=== PATIENT | female | born 1960 | race Caucasian/White ===

== ENCOUNTER → 2017-12-23 | Outpatient (CLI) | payer OTHER ==
[~2017-12-23] MED LIST: CYCL10TA2 PO; GABA-586 PO; MELO15TA23 PO; OXYC-327 PO; RIVA10TA PO
[2017-12-23 14:42] LABS: PROTHROMBIN TIME PATIENT 12.3 SEC (11.7-14.0)
== END | disposition home or self-care (01) ==
LOC: SURGPAT 13:18
PROVIDERS: ATTEND Orthopaedic Surgery
DX: Z01.818 Encounter for other preprocedural examination (principal); M17.11 Unilateral primary osteoarthritis, right knee
CPT/HCPCS: 36415; 82040; 85610; 85651; 85730; 87641

== ENCOUNTER → 2018-08-03 | Outpatient (CLI) | payer OTHER ==
[2018-01-02 13:22] VITALS: BP 137/99
[~2018-08-03] MED LIST changes: +ASPI325T8 PO; +CHOL2000 PO; -GABA-586 PO; +GABA300C18 PO; +MULT1TAB52 PO; -OXYC-327 PO; +OXYC1TAB19 PO; +TURM500C4 PO
--- NOTE | 2018-08-03 15:04 | KCIC ---
EXAMINATION: Magnetic resonance imaging (MRI) of the lumbar spine without contrast 08/03/2018 1:15 PM HISTORY: Left lumbar radiculopathy TECHNIQUE: Multiplanar multi-weighted MRI of the lumbar spine was performed without intravenous contrast using the standard lumbar spine protocol. Contrast information: None administered. COMPARISON: None available. FINDINGS: There is minimal retrolisthesis of L3 on L4. There is grade 1 anterolisthesis of L4 on L5 and L5 on S1. Vertebral body heights are maintained. Marrow signal intensity is normal in all sequences with exception of Modic type I endplate degenerative changes at L2-L3 and L3-L4. There is moderate disc height loss at L1-L2, L2-L3 and L3-L4. There is endplate remodeling at L3-L4. There is mild disc height loss at L4-L5 and mild disc height loss at L5-S1. Vacuum disc phenomena is identified at L3-L4, L4-L5 and L5-S1. Disc desiccation is noted at all levels of the lumbar spine. Annular fissure is noted at L4-L5 and L5-S1. Conus medullaris terminates at L1. Distal spinal cord signal intensity is normal in all sequences. Abdominal aorta is normal in caliber. No suspicious retroperitoneal abnormality is identified. There is retroaortic left renal vein. Visualized portions of the sacrum appear intact. L1-L2: There is a disc bulge asymmetric to the left. There is mild facet arthropathy. There is no significant neuroforaminal stenosis. Mild spinal canal stenosis. L2-L3: There is mild disc bulge asymmetric to the left. There is mild facet arthropathy ligamentum flavum infolding. There is mild bilateral neuroforaminal stenosis, left greater than right. Mild spinal canal stenosis. L3-L4: There is a moderate disc bulge. There is moderate facet arthropathy ligamentum flavum infolding. There is mild/moderate bilateral neuroforaminal stenosis. Moderate spinal canal stenosis. There is right lateral recess stenosis secondary to ligamentum flavum infolding. L4-L5: There is a disc bulge with central disc extrusion. There is moderate facet arthropathy ligamentum flavum infolding. Mild bilateral neuroforaminal stenosis. Mild spinal canal stenosis. There is right lateral recess stenosis secondary to facet arthropathy and ligamentum flavum infolding. L5-S1: There is a mild disc bulge. There is moderate facet arthropathy. There is no significant neuroforaminal or spinal canal stenosis. IMPRESSION: Moderate to advanced degenerative disc disease of the lumbar spine, as described in detail above. Electronically signed by: Lawanda Garay MD (08/03/2018 3:01 PM) [facility]
== END | disposition home or self-care (01) ==
LOC: KCIC MRI 12:57
PROVIDERS: ATTEND Orthopaedic Surgery
DX: M51.16 Intervertebral disc disorders with radiculopathy, lumbar region (principal); M12.88 Other specific arthropathies, not elsewhere classified, other specified site; M48.061 Spinal stenosis, lumbar region without neurogenic claudication; Z96.651 Presence of right artificial knee joint
CPT/HCPCS: 72148

== ENCOUNTER → 2018-09-02 | Outpatient (CLI) | payer OTHER ==
[2018-01-02 13:22] VITALS: BP 137/99
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
== END | disposition home or self-care (01) ==
LOC: PNCL 07:29
PROVIDERS: ATTEND Anesthesiology
DX: M54.5 Low back pain (principal); M79.605 Pain in left leg; M25.562 Pain in left knee; E11.9 Type 2 diabetes mellitus without complications; M19.90 Unspecified osteoarthritis, unspecified site; Z90.710 Acquired absence of both cervix and uterus; Z79.899 Other long term (current) drug therapy; Z88.2 Allergy status to sulfonamides; Z91.013 Allergy to seafood; Z96.653 Presence of artificial knee joint, bilateral; W19.XXXA Unspecified fall, initial encounter; Y93.89 Activity, other specified; Y92.89 Other specified places as the place of occurrence of the external cause; Y99.8 Other external cause status
CPT/HCPCS: G0463

== ENCOUNTER → 2018-09-16 | Outpatient (CLI) | payer OTHER ==
[2018-01-02 13:22] VITALS: BP 137/99
[~2018-09-16] MED LIST changes: +IOHEXOL 180 MG/ML 10 ML VIAL. ONE; +methylPREDNISolone ACETATE 40 MG/ML VIAL. ONE; +methylPREDNISolone ACETATE 80 MG/ML VIAL. ONE
--- NOTE | 2018-09-16 11:42 | PAIN ---
DATE OF SERVICE: 09/16/2018 DIAGNOSES: Lumbar radiculopathy with lumbar degenerative disk disease, lumbar spinal stenosis. HISTORY OF PRESENT ILLNESS: The patient is a 58-year-old female, who returns for followup status post initial evaluation and preauthorization for lumbar epidural steroid injection obtained as they would like to proceed, still pain in the low back, left lower extremity as it was previously, posterior gluteus, lateral thigh, lateral anterior thigh, medial thigh, posterior calf, aching and dull, shooting and sharp. The patient reports it is a 4 on a scale of 10 over the past week, at worst 3 on average a 2 at its least and is a 3 today. The patient reports it is better. She has been off work, has not been taking care of her grandchild over the past few weeks as well, which seem to decrease the pain also. The patient reports being off her feet, resting seems to decrease it. Also, the patient reports she is sleeping better at night, awakens her from sleep on and off, but not every night. The patient reports no new motor or sensory deficits, no new bowel or bladder incontinence or other complaints. PHYSICAL EXAMINATION: VITAL SIGNS: The patient's blood pressure 158/106, pulse 77, respirations 16, temperature is 97.5 degrees Fahrenheit, height is 5 feet 5 inches, weight is 224 pounds. GENERAL: The patient is awake, alert, oriented, appropriate, very pleasant demeanor. HEENT: Head shows normocephalic, atraumatic. Extraocular movements are intact and symmetrical. Oral cavity: Mucous membranes are moist and pink. Dentition is intact. NECK: Shows anterior throat supple without palpable lymphadenopathy noted. Swallow reflex symmetrical. CHEST: Shows normal with inspection. Breath sounds are clear to auscultation bilaterally. HEART: Shows S1, S2 clear. ABDOMEN: Soft, nontender, nondistended. BACK: Shows spine grossly in the midline. Normal appearing thoracic kyphosis and some minor flattening of lumbar lordotic curvature. Lumbar paraspinous muscle shows symmetrical on inspection, on palpation shows some moderate tenderness, but only diffusely bilaterally. The patient has good rotational motion of lumbar spine, both laterally as well as extension and flexion without significant difficulty. EXTREMITIES: Lower extremities show deep tendon reflexes 2+ in the patellar, 1+ tendo-calcaneus tendons. Motor exam is strong with 5/5 dorsiflexion, extension, quadriceps and hamstring flexion symmetrical. Peripheral pulses are 1+ posterior tibial. No peripheral edema is noted bilaterally. Options were discussed with the patient. The patient's old chart was reviewed as his current medication regimen updated. Current review of systems updated today as well and we will proceed with a lumbar epidural steroid injection today with fluoroscopic guidance. Risks were again discussed including, but not limited to bleeding, infection, possibility of epidural hematoma, subsequent neurological compromise, dural puncture, headaches, spinal cord and/or nerve damage, side effects of steroid medication and poor results regarding pain control. The patient understands and wished to proceed. The patient will return to clinic in approximately 2 weeks for followup, was counseled as to return appointment, activity level and side effects to be aware of. DIAGNOSES: Lumbar radiculopathy with lumbar degenerative disk disease, lumbar spinal stenosis. PROCEDURE: Lumbar epidural steroid injection, translaminar approach L4-L5 level using C-arm fluoroscopic guidance under sterile prep and drape using local anesthetic. MEDICATION INJECTED: A total of 120 mg Depo-Medrol plus 10 mL of preservative-free normal saline and 2 mL of Isovue for contrast. CONDITION AT DISCHARGE: Stable shock well, had no complications. ANTONIETTA ALEGRIA MD DR: PHILLIP/nts JOB#: [id number] / [id number]
== END ==
LOC: PNCL 07:54
PROVIDERS: ATTEND Anesthesiology
DX: M51.16 Intervertebral disc disorders with radiculopathy, lumbar region (principal); M48.061 Spinal stenosis, lumbar region without neurogenic claudication; Z79.82 Long term (current) use of aspirin
CPT/HCPCS: 62323; J1030; J1040; Q9965

== ENCOUNTER → 2018-09-30 | Outpatient (CLI) | payer OTHER ==
[2018-01-02 13:22] VITALS: BP 137/99
[~2018-09-30] MED LIST changes: -IOHEXOL 180 MG/ML 10 ML VIAL. ONE; -methylPREDNISolone ACETATE 40 MG/ML VIAL. ONE; -methylPREDNISolone ACETATE 80 MG/ML VIAL. ONE
--- NOTE | 2018-09-30 10:32 | PAIN ---
DATE OF SERVICE: 09/30/2018 PROGRESS NOTE FOR PAIN CLINIC DIAGNOSES: Lumbar radiculopathy with lumbar degenerative disk disease, lumbar spinal stenosis. HISTORY OF PRESENT ILLNESS: The patient is a 58-year-old female, who returns for followup status post lumbar epidural steroid injection x 1. The patient reports about 75% improvement initially, now about 50% improvement after the first 2 weeks, is still doing much better. She is sleeping better, not taking her sleeping aid anymore, increasing her activity, distance walking, sleeping better, doing household activities with greater ease and comfort. The patient reports pain is still in the low back and left leg in a radicular pattern at L4-L5 dermatomal distribution into the posterior gluteus, posterolateral thigh, lateral anterior thigh, medial thigh, but much better than it was. The patient reports it is a 3 on a scale of 10 at its worst over the past week, 2 at its average and 1 at its least and is a 2 today. The patient reports it is aching and dull, shooting and sharp occasionally. No new motor or sensory deficits, no new bowel or bladder incontinence or other complaints. PHYSICAL EXAMINATION: VITAL SIGNS: The patient's blood pressure 140/100, pulse 76, respirations are 16, temperature 97.6 degrees Fahrenheit, weight is 224 pounds. GENERAL: The patient is awake, alert, oriented, appropriate, very pleasant demeanor. HEENT: Head shows normocephalic, atraumatic. Extraocular movements are intact and symmetrical. Oral cavity: Mucous membranes are moist and pink. Dentition is intact. NECK: Shows anterior throat supple without palpable lymphadenopathy noted. Swallow reflex symmetrical. CHEST: Shows normal on inspection. Breath sounds clear. HEART: Shows S1, S2 clear. No murmurs auscultated. ABDOMEN: Soft, nontender, nondistended. BACK: Shows spine grossly in the midline. Normal appearing lumbar lordotic curvature. Lumbar paraspinous muscle shows symmetrical on inspection, on palpation shows some moderate tenderness diffusely bilaterally, but only diffusely, the patient has good rotational motion both laterally as well as extension and flexion without difficulty. EXTREMITIES: The patient's lower extremities show deep tendon reflexes at 2+ in the patellar and 1+ tendo-calcaneus tendons and are equal. Motor exam is strong with 5/5 dorsiflexion, extension, quadriceps and hamstring flexion. Peripheral pulses are 1+ posterior tibial. No peripheral edema is noted bilaterally. Options were discussed with the patient. The patient's old chart was reviewed as his current medication regimen updated. Current review of systems updated today as well. We will preauthorize the patient for a second lumbar epidural steroid injection with still persistent L4-L5 dermatomal distribution, radiculopathy on the left, doing much better; however, again 50% improvement overall. The patient will continue with doing stretching and strengthening exercise on her own as well as walking as tolerated and return in approximately 1 week. We will plan on lumbar epidural steroid injection at that time at L4-L5 level for her left L4-L5 radiculopathy. ANTONIETTA ALEGRIA MD DR: PHILLIP/nts JOB#: [id number] / [id number]
== END | disposition home or self-care (01) ==
LOC: PNCL 07:59
PROVIDERS: ATTEND Anesthesiology
DX: M51.16 Intervertebral disc disorders with radiculopathy, lumbar region (principal); M48.061 Spinal stenosis, lumbar region without neurogenic claudication
CPT/HCPCS: G0463

== ENCOUNTER → 2018-10-23 | Outpatient (CLI) | payer OTHER ==
[2018-01-02 13:22] VITALS: BP 137/99
[~2018-10-23] MED LIST changes: +IOHEXOL 180 MG/ML 10 ML VIAL. ONE; +methylPREDNISolone ACETATE 40 MG/ML VIAL. ONE; +methylPREDNISolone ACETATE 80 MG/ML VIAL. ONE
--- NOTE | 2018-10-23 15:41 | PAIN ---
DATE OF SERVICE: 10/23/2018 PROGRESS NOTE FOR PAIN CLINIC DIAGNOSES: Lumbar radiculopathy with lumbar degenerative disk disease, lumbar spinal stenosis. HISTORY OF PRESENT ILLNESS: The patient is a 58-year-old female who returns for followup status post lumbar epidural steroid injection x 1. She did very well, about 75% improvement after the first injection, the pain is returning now, however, in the low back and primarily in the left lower extremity, posterior gluteus, posterolateral thigh, lateral anterior thigh, medial thigh and posterior thigh as well as the posterior calf. The patient reports it is aching and dull, on and off in intensity, rates it a 4 on a scale of 10 at its worst over the past week, 3 on average, 2 at its least and is 3 today. The patient reports no new motor or sensory deficits, better with sitting or lying down, does not awaken her from sleep at night. The patient reports no new motor or sensory deficits, no bowel or bladder incontinence. PHYSICAL EXAMINATION: VITAL SIGNS: The patient's blood pressure 158/107, pulse 78, respirations 18, temperature is 98.1 degrees Fahrenheit, height 5 feet 5 inches, weighs 225 pounds. GENERAL: The patient is awake, alert, oriented, appropriate, very pleasant in demeanor. HEENT: Head is normocephalic, atraumatic. Extraocular movements are intact and symmetrical. Oral cavity, mucous membranes are moist and pink. Dentition is intact. NECK: Shows anterior throat supple without palpable lymphadenopathy noted. Swallow reflex symmetrical. CHEST: Shows normal with inspection. Breath sounds clear to auscultation bilaterally. HEART: Shows S1, S2 clear. No murmurs auscultated. ABDOMEN: Soft, nontender, nondistended. No palpable organomegaly is noted. No rebound or guarding demonstrated. BACK: Shows spine grossly in the midline. Normal appearing thoracic kyphosis, mild flattening of lumbar lordotic curvature. Lumbar paraspinous muscle shows symmetrical on inspection. On palpation shows some moderate tenderness diffusely, but only diffusely without radiation. The patient has good rotational motion of lumbar spine, both laterally as well as extension and flexion without significant difficulty. EXTREMITIES: The patient's lower extremities show deep tendon reflexes 2+ in the patellar, 1+ tendo-calcaneus tendons. Motor exam is strong with 5/5 dorsiflexion and extension. Peripheral pulses are 1+. No peripheral edema is noted. Options were discussed with the patient. The patient's old chart was reviewed as well as current medication regimen updated. Current review of systems updated today as well. We will proceed with a second in a series of lumbar epidural steroid injection today with fluoroscopic guidance. Risks were again discussed including, but not limited to bleeding, infection, possibility of epidural hematoma, subsequent neurologic compromise, dural puncture, headaches, spinal cord and/or nerve damage, side effects of steroid medication and poor results regarding pain control. The patient understands and wished to proceed. The patient will return to clinic in approximately 2 weeks for followup, was counseled as to return appointment, activity level and side effects to be aware of. DIAGNOSES: Lumbar radiculopathy with lumbar degenerative disk disease, lumbar spinal stenosis. PROCEDURE: Lumbar epidural steroid injection, translaminar approach L4-L5 level using C-arm fluoroscopic guidance under sterile prep and drape using local anesthetic. MEDICATION INJECTED: A total of 120 mg Depo-Medrol plus 10 mL of preservative-free normal saline and 2 mL of Isovue for contrast. CONDITION AT DISCHARGE: Stable. The patient tolerated procedure well, had no complications. ANTONIETTA ALEGRIA MD DR: PHILLIP/alexa JOB#: [id number] / [id number]
== END ==
LOC: PNCL 08:34
PROVIDERS: ATTEND Anesthesiology
DX: M51.16 Intervertebral disc disorders with radiculopathy, lumbar region (principal); M48.061 Spinal stenosis, lumbar region without neurogenic claudication
CPT/HCPCS: 62323; J1030; J1040; Q9965